=== PATIENT | female | born 1990 | race Caucasian/White ===

== ENCOUNTER 2020-11-23 05:23 | Inpatient (IN) | payer OTHER ==
[~2020-11-23] VITALS: Ht 157.5 cm; Wt 83.9 kg
[2020-11-23] VITALS (9 sets, daily range): BP systolic 108–134; BP diastolic 55–76
[~2020-11-23 05:23] MED LIST: CELE40TA PO; COMPPAK PO; VALT500T PO
[2020-11-23] MEDS ORDERED: BICITRA 30ML SOLN UDC PO ONE (06:00)
[2020-11-23 06:20] LABS: HEMOGLOBIN 12.4 g/dl (12.0-15.5); MEAN CORPUSCULAR HGB CONC 33.5 g/dl (32.0-36.5); MEAN CORPUSCULAR VOLUME 89.4 fl (80.0-96.0); PLATELET COUNT, AUTOMATED 327 10^3/uL (150-450); RED BLOOD COUNT 4.14 10^6/uL (4.00-5.40); WHITE BLOOD COUNT 13.2 10^3/uL (4.0-10.0)
[2020-11-23] MEDS ORDERED: ceFAZolin SOD 2 GM in IV 1 EA IV ONE (06:40)
[2020-11-23 06:55] LABS: ALBUMIN 2.5 GM/DL (3.2-5.2); ALT/SGPT 21 U/L (12-78); BILIRUBIN,TOTAL 0.4 MG/DL (0.2-1.0); BLOOD UREA NITROGEN 8 MG/DL (7-18); CALCIUM LEVEL 8.7 MG/DL (8.5-10.1); CARBON DIOXIDE LEVEL 19 MEQ/L (21-32); CHLORIDE LEVEL 110 MEQ/L (98-107); CREATININE FOR GFR 0.46 MG/DL (0.55-1.30); GLOMERULAR FILTRATION RATE > 60.0 (>60); GLUCOSE, FASTING 80 MG/DL (70-100); SODIUM LEVEL 137 MEQ/L (136-145); TOTAL PROTEIN 6.4 GM/DL (6.4-8.2)
[2020-11-23] MEDS ORDERED: LR 1,000 ML IV ONE (06:55)
[2020-11-23] MEDS ORDERED: MORPHINE PRES-FREE INJ 10 MG/10 ML VIAL (J2274) As Ordered ONE (07:15)
[2020-11-23] MEDS ORDERED: OXYTOCIN INJ 10 UNITS/ML VIAL (J2590) As Ordered ONE ×2 (07:15→08:53)
[2020-11-23] MEDS ORDERED: fentaNYL 100 MCG/2 ML INJECTION (J3010) As Ordered ONE ×2 (07:15→09:48)
[2020-11-23] MEDS ORDERED: METOCLOPRAMIDE INJ 10MG/2ML VIAL (J2765 PER 1) IV PRN (07:48)
[2020-11-23] MEDS ORDERED: ONDANSETRON 4MG/2ML VIAL IV PRN ×3 (07:48→09:35)
[2020-11-23] MEDS ORDERED: NALOXONE INJ 0.4MG/1ML VIAL (J2310 PER 1MG) IV PRN ×2 (07:48)
[2020-11-23] MEDS ORDERED: NALBUPHINE HCL 10 MG/ML AMP (J2300) IV PRN (07:48)
[2020-11-23] MEDS ORDERED: diphenhydrAMINE 50MG/ML VIAL (J1200) IV PRN (07:48)
[2020-11-23] MEDS ORDERED: PHENYLephrine 500MCG 5ML (100MCG/ML) SYRINGE As Ordered ONE (07:58)
[2020-11-23] MEDS ORDERED: ONDANSETRON 4MG/2ML VIAL As Ordered ONE (08:15)
[2020-11-23] MEDS ORDERED: dexameTHASONE 4 MG/ML 1ML VIAL (J1100 PER 1MG) As Ordered ONE (08:16)
[2020-11-23] MEDS ORDERED: propofoL 200 MG/20 ML VIAL As Ordered ONE ×2 (08:24→08:51)
[2020-11-23] MEDS ORDERED: METOCLOPRAMIDE INJ 10MG/2ML VIAL (J2765 PER 1) As Ordered ONE (08:51)
[2020-11-23] MEDS ORDERED: KETOROLAC 60MG 2ML VIAL As Ordered ONE (08:51)
[2020-11-23] MEDS ORDERED: RHOGAM 300 MCG (1500 IU) INJ (J2790) IM SCH (09:00)
[2020-11-23] MEDS: PRENATAL VITAMINS CHEWABLE TABLET PO SCH (09:00)
[2020-11-23] MEDS ORDERED: oxyCODONE 5MG TAB PO PRN ×2 (09:00→09:35)
[2020-11-23] MEDS ORDERED: PROMETHAZINE 25 MG TAB PO PRN (09:00)
[2020-11-23] MEDS ORDERED: OXYTOCIN DRIP 30 UNITS in IV 1 EA IV SCH (09:00)
[2020-11-23] MEDS ORDERED: ACETAMINOPHEN TAB 650MG DOSE (2X325MG) PO PRN (09:00)
[2020-11-23] MEDS ORDERED: ACETAMINOPHEN 500 MG TAB PO PRN (09:00)
[2020-11-23] MEDS ORDERED: MEASLES,MUMPS,RUBELLA VACCINE INJ (MMR-II) (90707) SC SCH (09:00)
[2020-11-23] MEDS ORDERED: ACETAMINOPHEN 1000MG 100ML IV BTL (OFIRMEV) (J0131 PER 10MG) As Ordered ONE (09:18)
[2020-11-23] MEDS: fentaNYL 100 MCG/2 ML INJECTION (J3010) IV PRN ×2 (09:51→10:12)
[2020-11-23] MEDS ORDERED: OXYTOCIN 30 UNITS IN 0.9% NaCl 500ML IV BAG (J2590) As Ordered ONE (09:57)
[2020-11-23] MEDS: LR 1,000 ML IV SCH ×2 (14:41→17:00)
[2020-11-23] MEDS: KETOROLAC 30 MG/ML 1ML VIAL IV SCH ×2 (16:27→21:19)
[2020-11-23] MEDS: CitaloPRAM (CeleXA) 20 MG TAB PO SCH (21:18)
[2020-11-24 02:00] VITALS: BP 107/57
[2020-11-24] MEDS: KETOROLAC 30 MG/ML 1ML VIAL IV SCH (03:26)
[2020-11-24 06:15] VITALS: BP 108/54
[2020-11-24 07:59] LABS: HEMATOCRIT 30.2 % (36.0-47.0); MEAN CORPUSCULAR HEMOGLOBIN 30.5 pg (27.0-33.0); MEAN CORPUSCULAR HGB CONC 33.4 g/dl (32.0-36.5); MEAN CORPUSCULAR VOLUME 91.2 fl (80.0-96.0); PLATELET COUNT, AUTOMATED 262 10^3/uL (150-450); RED BLOOD COUNT 3.31 10^6/uL (4.00-5.40); WHITE BLOOD COUNT 13.8 10^3/uL (4.0-10.0)
[2020-11-24 08:03] LABS: HEMOGLOBIN 10.1 g/dl (12.0-15.5)
--- NOTE | 2020-11-24 08:08 | RO ---
OPERATIVE NOTE DATE OF OPERATION: 11/23/2020 PREOPERATIVE DIAGNOSIS: 1. History of section. 2. Satisfied parity. 3. History of HSV. POSTOPERATIVE DIAGNOSIS: 1. History of section. 2. Satisfied parity. 3. History of HSV. PROCEDURE: Repeat low transverse section with bilateral tubal ligation. SURGEON: Tono Raman DO BETTING AGENCY COUNTER CLERK: Meg Canseco CNM. ANESTHESIA: Spinal. IV FLUIDS: 1300 mL LR. URINE OUTPUT: 75 mL via Hernandez catheter. ESTIMATED BLOOD LOSS: 600 mL ANTIBIOTICS: 2 gm of Ancef before case start. COMPLICATIONS: None. OPERATIVE FINDINGS: A viable female infant found and delivered in cephalic presentation. Clear amniotic fluid noted. weight was 2910 gms or 6 lb, 7 oz. Apgars were 8 and 9. Uterus appeared normal. Normal fallopian tubes and ovaries bilaterally. DETAILED PROCEDURE DESCRIPTION: The risks, benefits, indications, and alternatives of the procedure were reviewed with the patient and informed consent was obtained. The patient was taken to the operating room where spinal anesthesia was obtained and found to be adequate. She was then prepped and draped in the usual sterile fashion in the dorsal supine position. A surgical time-out was then performed where the patient's identity and planned procedure were verified by the operative team. A Pfannenstiel skin incision was then made with a scalpel and carried through to the underlying layer of fascia. The fascia was incised in the midline and the incision was extended laterally with Angulo scissors. The superior aspect of the fascial incision was grasped with Lisa clamps, elevated, and the underlying rectus muscles were dissected off bluntly and with a scalpel. Attention was then turned to the inferior aspect of this incision which in a similar fashion was grasped, tented up with Lisa clamps, and the rectus muscles were dissected off with Angulo scissors. The rectus muscles were then in the midline. The peritoneum was identified, tented up, and entered digitally. The peritoneal incision was then extended horizontally and superiorly with good visualization of the bladder. A Mobius self-retaining retractor was then inserted into the abdomen as a means for exposure. A bladder flap was created using Metzenbaum scissors. The lower uterine segment was incised in a transverse fashion with a scalpel. Clear fluid was noted upon entry into the uterus. The uterine incision was then extended manually. The infant was found to be in cephalic presentation. The baby was then delivered without difficulty through the hysterotomy. The cord was then doubly clamped and cut. The infant was handed off to the awaiting team. The placenta was then removed manually with gentle traction on the cord. The uterus was then cleared of all clots and debris. The uterine incision was then repaired with 0 Monocryl in a running locked fashion. A second layer of 0 Monocryl was then used to imbricate the hysterotomy in a vertical fashion. Inspection of the hysterotomy revealed excellent hemostasis. There paracolic gutters were then inspected and cleared of all clots and debris. The hysterotomy was again noted to be hemostatic. The patient's left fallopian tube was then grasped with a Chata clamp and followed out to its fimbriated end. The mesosalpinx was incised parallel to the fallopian tube in an avascular plane using Bovie electrocautery. Two free ties of plain catgut suture were passed through the defect around the fallopian tube at its proximal and distal segments and they were then tied. The tubal segment between the two sutures was then excised using Metzenbaum scissors. Approximately 2 cm of tube was excised and sent to pathology. Excellent hemostasis was noted. An identical procedure was then performed on the patient's right fallopian tube. Excellent hemostasis was noted at the tube. The hysterotomy was again inspected. It was noted to be hemostatic. The peritoneum was then closed with a running suture of 3-0 Vicryl. The fascia was then closed with 0 Vicryl suture in a running fashion. Irrigation was then performed to good effect. The subcutaneous fat was then closed with 3-0 Vicryl suture in a running fashion. The skin was then closed with 4-0 Monocryl suture on a Pedro need in a subcuticular fashion. The incision was then dressed with Steri-Strips and a pressure dressing was applied. At the completion of the case, a bimanual exam was performed which revealed good uterine tone and minimal vaginal bleeding. The patient tolerated the procedure well. The sponge, instrument, and needle counts were correct x3. The patient was taken to the recovery room in stable condition. JALIL
--- NOTE | 2020-11-24 08:55 | IPN ---
PROGRESS NOTE DATE: 11/24/2020 day #1. This lady is a 1, now para 2, admitted for elective repeat section and bilateral tubal ligation, delivered a female infant, 6 pounds, 7 ounces, 2910 grams, scores of 8 and 9 at 1 and 5 minutes, respectively. Admitting hemoglobin 12.4, hematocrit 37.0, platelets 327. Vital signs this morning: Blood pressure 108/54, respirations 18, pulse 60, temperature is 96.9. We discussed phlebitis, cystitis, mastitis, endometritis, and cellulitis, diet, exercise, pain management, perineal, breast, and wound care. Presently, she is normocephalic, atraumatic. Neck full range of motion. Pupils equal and reactive to light. Distal pulses are symmetric. No evidence of deep venous thrombosis (DVT), pulmonary embolus (PE), or superficial phlebitis. Chest is clear bilaterally to the bases. No wheezes or rhonchi. No costovertebral angle (CVA) tenderness. Abdomen is soft, four quadrant bowel sounds are noted. Incision is clean and dry. No rashes, lesions, or pruritus. No arthralgia, myalgia, no complaint of joint pain. No complaint of cough, wheeze, shortness of breath, or dyspnea on exertion. No nausea, vomiting, diarrhea, or constipation. No urgency or frequency. Patient is voiding, walking around, passing gas, is actively engaged with her baby. Plans are for discharge tomorrow. She has picked up her postoperative medications at [facility], 2 week incision check, 6 week check. All questions are answered, 20 minute discussion.
[2020-11-24] MEDS: PRENATAL VITAMINS CHEWABLE TABLET PO SCH (09:00)
[2020-11-24 10:00] VITALS: BP 115/53
[2020-11-24] MEDS: IBUPROFEN 800 MG TAB PO SCH ×2 (11:42→18:36)
[2020-11-24] MEDS: SIMETHICONE 80MG CHEW TAB PO PRN ×2 (13:17→19:34)
[2020-11-24 14:00] VITALS: BP 133/61
[2020-11-24 18:00] VITALS: BP 135/72
[2020-11-24] MEDS: oxyCODONE 5MG TAB PO PRN (19:34)
[2020-11-24] MEDS: CitaloPRAM (CeleXA) 20 MG TAB PO SCH (20:56)
[2020-11-24 22:00] VITALS: BP 110/59
[2020-11-25 02:00] VITALS: BP 142/64
[2020-11-25] MEDS: IBUPROFEN 800 MG TAB PO SCH ×2 (03:02→10:47)
[2020-11-25] MEDS: oxyCODONE 5MG TAB PO PRN (05:39)
[2020-11-25 05:52] VITALS: BP 118/57
--- NOTE | 2020-11-25 07:45 | IPNPDOC ---
Progress Note Date of Service: Nov 25, 2020 Progress Note SUBJECT: Alondra is a 30-year-old 2, now para 2, admitted for elective repeat section and bilateral tubal ligation, delivered a female infant, 6 pounds, 7ounces, 2910 grams, scores of 8 and 9 at 1 and 5 minutes, respectively, doing well day # 2. She has been ambulating, voiding spontaneously without issue and tolerating regular diet. Breast feeding without issue. Reports lochia is minimal. OBJECTIVE: VITAL SIGNS: Within normal limits, afebrile. Alert and oriented times three. normal work of breathing Heart rate: Regular rate and rhythm Abdomen: Fundus firm at U-2. Soft, NTTP. ASSESSMENT: Alondra is a 30-year-old 2, now para 2, admitted for elective repeat section and bilateral tubal ligation, delivered a female , 6 pounds, 7ounces, 2910 grams, scores of 8 and 9 at 1 and 5 minutes, respectively, doing well day # 2. Vitals within normal limits, afebrile, hemodynamically stable with no evidence of infection. PLAN: 1. Discharge to home today. 2. Tylenol and Motrin for pain. Oxycodone for breakthrough pain 3. Encourage breast feeding and ambulation. 4. s/p BTL for contraception 5. Routine PP visit in 6 weeks in clinic. 6. Discussed return precautions at length. VS, I&O, 24H, Francisco Jbone Vital Signs/I&O Vital Signs Label Value Date Time Patient Temperature 97.2 degrees F 11/25/20 0552 Temperature Source Temporal 11/25/20 0552 Pulse 74 11/25/20 0552 Respiratory Rate 18 bpm 11/25/20 0552 Blood Pressure Assessment 118/57 (77) 11/25/20 0552 Source Automatic Cuff (NIBP) Bedside Pulse Oximetry 96 % 11/25/20 0552 Vital Signs Date Time Temp Pulse Resp B/P (MAP) Pulse Ox O2 Delivery O2 Flow Rate FiO2 11/25/20 02:00 97.2 79 14 142/64 (90) 97 Room Air Laboratory Data 24H LABS Laboratory Tests 2 11/24/20 07:37: Nucleated Red Blood Cells % (auto) 0.0 CBC/BMP Laboratory Tests 11/24/20 07:37 HAILY SALEH M.D. Nov 25, 2020 05:11
[2020-11-25] MEDS: PRENATAL VITAMINS CHEWABLE TABLET PO SCH (07:49)
--- NOTE | 2020-11-25 08:08 | OBDS ---
[facility] Obstetrical Discharge Sum. Obstetrical Discharge Summary Delivery Patient admitted for scheduled repeat LTCS. See op note OPERATIVE NOTE DATE OF OPERATION: 11/23/2020 PREOPERATIVE DIAGNOSIS: 1. History of section. 2. Satisfied parity. 3. History of HSV. POSTOPERATIVE DIAGNOSIS: 1. History of section. 2. Satisfied parity. 3. History of HSV. PROCEDURE: Repeat low transverse section with bilateral tubal ligation. SURGEON: Tono Raman DO ENGRAVING PATTERNMAKER: Meg Canseco CNM. ANESTHESIA: Spinal. IV FLUIDS: 1300 mL LR. URINE OUTPUT: 75 mL via Hernandez catheter. ESTIMATED BLOOD LOSS: 600 mL ANTIBIOTICS: 2 gm of Ancef before case start. COMPLICATIONS: None. OPERATIVE FINDINGS: A viable female found and delivered in cephalic presentation. Clear amniotic fluid noted. weight was 2910 gms or 6 lb, 7 oz. Apgars were 8 and 9. Uterus appeared normal. Normal fallopian tubes and ovaries bilaterally. Uncomplicated course. A/P, Post Course List any complications Admission diagnosis: Scheduled RLTCS at [facility] at term Discharge diagnosis: same Condition at Discharge: stable Discharge Instructions: home Activity: no heavy lifting and nothing per vagina x6 weeks Diet: regular Medications: tylenol, motrin, oxycodone for pain Follow-up: 2 week and 6wk visits HAILY SALEH M.D. Nov 25, 2020 08:08
== END 2020-11-25 11:15 | disposition home or self-care (01) | DRG 785 ==
LOC: M LDI 05:23 → M OBS 11:04
PROVIDERS: ADMIT Obstetrics & Gynecology; ATTEND Obstetrics & Gynecology
PROC: 0UB70ZZ Excision of Bilateral Fallopian Tubes, Open Approach (ICD-10-PCS; 2020-11-23)
PROC: 10D00Z1 Extraction of Products of Conception, Low, Open Approach (ICD-10-PCS; principal; 2020-11-23 07:30)
DX: O34.211 Maternal care for low transverse scar from previous cesarean delivery (principal); Z3A.39 39 weeks gestation of pregnancy; Z37.0 Single live birth; Z30.2 Encounter for sterilization

== ENCOUNTER → 2022-07-16 | Outpatient (CLI) | payer OTHER | LOC: M WHC 10:02 | PROVIDERS: ATTEND Nurse Practitioner Primary Care | DX: N64.4 Mastodynia (principal) | CPT/HCPCS: 77066; G0279 ==